=== PATIENT | female | born 1960 | race Two or more races ===

== ENCOUNTER 2022-08-03 14:37 | Outpatient (CLI) | payer OTHER ==
[~2022-08-03 14:37] MED LIST: CATAFLAM50 MG; DOXYCYCLINE HY100 M2 PO; ENALAPRIL MALE2.5 MG; GLIMEPIRIDE4 MG PO; LANTUS100 U/ML; LEVAQUIN750 MG PO; OMEPRAZOLE20 M1; PEPCID20 MG PO; SYNTHROID50 MCG
== END 2022-08-03 14:43 | disposition home or self-care (01) ==
LOC: RAD 14:37
PROVIDERS: ATTEND Orthopaedic Surgery
DX: M25.552 Pain in left hip (principal)

== ENCOUNTER 2022-08-04 10:07 | Outpatient (CLI) | payer OTHER | END 2022-08-04 10:08 | disposition home or self-care (01) | LOC: LAB 10:07 | PROVIDERS: ATTEND Orthopaedic Surgery | DX: D64.9 Anemia, unspecified (principal); D68.8 Other specified coagulation defects; N39.0 Urinary tract infection, site not specified; E11.9 Type 2 diabetes mellitus without complications; E88.9 Metabolic disorder, unspecified; A49.02 Methicillin resistant Staphylococcus aureus infection, unspecified site; Z76.89 Persons encountering health services in other specified circumstances ==